=== PATIENT | female | born 1965 | race Caucasian/White ===

== ENCOUNTER 2025-09-05 14:42 | Emergency (ER) | payer OTHER ==
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
--- NOTE | 2025-09-05 16:21 | RAD REPORT ---
EXAM: CT brain without contrast HISTORY: TRAUMA COMPARISON: None TECHNIQUE: Multiple contiguous axial images were obtained and a CT of the brain without contrast. Sag ittal and coronal reformats were performed. FINDINGS: No evidence of hydrocephalus, intracranial hemorrhage, or extra-axial fluid collection. The brain is normal in morphology. The calvarium is intact. Right parietal sebaceous cyst measuring 1.4 cm. Patchy opacification of the right mastoid air cells The visualized paranasal sinuses are essentially clear. IMPRESSION: No evidence of acute intracranial abnormality. EXAM: CT of the cervical spine without contrast HISTORY: TRAUMA COMPARISON: None TECHNIQUE: Multiple contiguous axial images were obtained in a CT of the cervical spine without contr ast. Sagittal and coronal reformats were performed. FINDINGS: The vertebral bodies demonstrate normal height and alignment. No evidence of acute fracture or subluxation.. No degenerative changes are present. No prevertebral soft tissue swelling is seen. The posterior facets are well aligned. Normal alignment of the skull base with the cervical spine is seen. The lung apices are unremarkable. IMPRESSION: No evidence of acute osseous abnormality of the cervical spine.
[2025-09-05 19:40] VITALS: TEMP 98.7
[2025-09-05 19:41] VITALS: BP 106/66; O2SAT 96
== END 2025-09-05 16:06 | disposition home or self-care (01) ==
LOC: ER 14:42
DX: S09.90XA Unspecified injury of head, initial encounter (principal); Y04.2XXA Assault by strike against or bumped into by another person, initial encounter; Z72.0 Tobacco use
CPT/HCPCS: 70450; 72125; 99283